=== PATIENT | female | born 1995 | race Caucasian/White ===

== ENCOUNTER 2017-03-10 15:36 | Emergency (ER) | payer OTHER ==
[~2017-03-10] VITALS: Ht 165.1 cm; Wt 127.0 kg
[~2017-03-10 15:36] MED LIST: BIAXIN250 MG PO; BIRTH CONTROL1 EAC1 PO; CONTRAVE1 TER PO; CYCLOBENZAPRINE10 MG PO; GLUCOPHAGE500 MG PO; HYDROCODONE BIT1 T11 PO; IBU800 MG PO; METFORMIN500 MG PO; MOTRIN800 MG PO; Motrin,Rufen800 MG PO; NORCO 10-325 T1 EACH PO; PREDNISONE10 MG PO; ZOFRAN ODT4 MG SL; ZOFRAN4 MG PO
[2017-03-10] MEDS ORDERED: CYCLOBENZAPRINE5 M3 PO (17:27)
[2017-03-10] MEDS ORDERED: Motrin,Rufen800 MG PO (17:27)
== END 2017-03-10 17:36 | disposition home or self-care (01) ==
LOC: ED 15:36
DX: S09.8XXA Other specified injuries of head, initial encounter (principal); Z91.012 Allergy to eggs; Z88.8 Allergy status to other drugs, medicaments and biological substances; F10.10 Alcohol abuse, uncomplicated; W18.09XA Striking against other object with subsequent fall, initial encounter; Y93.89 Activity, other specified; Y92.89 Other specified places as the place of occurrence of the external cause; Y99.8 Other external cause status

== ENCOUNTER 2018-03-11 03:01 | Emergency (ER) | payer OTHER ==
[~2018-03-11] VITALS: Ht 165.1 cm; Wt 136.1 kg
[~2018-03-11 03:01] MED LIST changes: +CYCLOBENZAPRINE5 M3 PO
[2018-03-11] MEDS ORDERED: ATIVAN0.5 MG PO (03:11)
[2018-03-11] MEDS ORDERED: METFORMIN ER500 MG PO (03:12)
[2018-03-11] MEDS ORDERED: LEVOTHYROXINE50 MCG PO (03:12)
[2018-03-11] MEDS ORDERED: VYVANSE30 MG PO (03:13)
[2018-03-11] MEDS ORDERED: EPIPEN 2-P0.3 MG/0.3 IJ (03:14)
[2018-03-11 03:25] LABS: BASO % 0.2 % (0.0-1.0); EOS # 0.1 10*3/uL (0.0-0.4); HEMATOCRIT 42.5 % (37.0-47.0); HEMOGLOBIN 13.8 g/dl (12.0-16.0); LYMPH # 2.3 10*3/uL (1.3-4.4); LYMPH % 22.5 % (27.0-41.0); MEAN CELL VOLUME 83.8 fl (81.0-99.0); MEAN CORPUSCULAR HGB 27.2 pg (27.0-31.0); MEAN CORPUSCULAR HGB CONC 32.5 g/dl (33.0-37.0); MONO # 0.5 10*3/uL (0.1-1.0); MONO % 4.3 % (3.0-9.0); NEUT # 7.5 10*3/uL (2.3-7.9); NEUT % 71.9 % (47.0-73.0); PLATELET COUNT AUTOMATED 384 10*3/uL (130-400); RED BLOOD COUNT 5.07 10*6/uL (4.10-5.10); RED CELL DISTRI WIDTH 14.5 % (0-14.5); WHITE BLOOD COUNT 10.4 10*3/uL (4.8-10.8)
[2018-03-11 03:41] LABS: ALBUMIN 3.5 gm/dl (3.1-4.5); ALKALINE PHOSPHATASE 46 U/L (45-117); BUN 7 mg/dl (7-24); CHLORIDE 110 mmol/L (98-107); CREATININE 0.92 mg/dL (0.55-1.02); LIPASE 152 U/L (73-393); POTASSIUM 4.4 mmol/L (3.5-5.1); SGOT/AST 21 IU/L (3-35); SGPT/ALT 39 U/L (12-78); SODIUM 142 mmol/L (136-145); TOTAL PROTEIN 7.2 gm/dL (6.4-8.2)
[2018-03-11 03:43] LABS: BETA-HCG, QUANT < 1.0 mIU/mL (1-3)
[2018-03-11] MEDS ORDERED: OMEPRAZOLE20 M2 PO (04:53)
== END 2018-03-11 05:00 | disposition home or self-care (01) ==
LOC: ED 03:01
PROVIDERS: Student in an Organized Health Care Education/Training Program
DX: K21.9 Gastro-esophageal reflux disease without esophagitis (principal); R11.2 Nausea with vomiting, unspecified; G89.29 Other chronic pain; Z88.8 Allergy status to other drugs, medicaments and biological substances; Z91.012 Allergy to eggs; Z79.899 Other long term (current) drug therapy; Z79.84 Long term (current) use of oral hypoglycemic drugs; Z87.442 Personal history of urinary calculi

== ENCOUNTER 2018-06-01 23:01 | Emergency (ER) | payer OTHER, BC ==
[~2018-06-01] VITALS: Ht 165.1 cm; Wt 131.5 kg
[~2018-06-01 23:01] MED LIST changes: +ATIVAN0.5 MG PO; +EPIPEN 2-P0.3 MG/0.3 IJ; +LEVOTHYROXINE50 MCG PO; +METFORMIN ER500 MG PO; +OMEPRAZOLE20 M2 PO; +VYVANSE30 MG PO
== END 2018-06-02 00:29 | disposition home or self-care (01) ==
LOC: ED 23:01
DX: S30.0XXA Contusion of lower back and pelvis, initial encounter (principal); G89.29 Other chronic pain; K21.9 Gastro-esophageal reflux disease without esophagitis; Z87.442 Personal history of urinary calculi; Z79.899 Other long term (current) drug therapy; Z79.84 Long term (current) use of oral hypoglycemic drugs; Z88.8 Allergy status to other drugs, medicaments and biological substances; Z91.012 Allergy to eggs; W00.0XXA Fall on same level due to ice and snow, initial encounter; Y93.89 Activity, other specified; Y92.89 Other specified places as the place of occurrence of the external cause; Y99.8 Other external cause status

== ENCOUNTER 2019-02-15 14:35 | Emergency (ER) | payer BC ==
[~2019-02-15] VITALS: Ht 165.1 cm; Wt 131.5 kg
[2019-02-15] MEDS ORDERED: CEPHALEXIN500 M1 PO (15:28)
== END 2019-02-15 15:34 | disposition home or self-care (01) ==
LOC: ED 14:35
DX: S61.211A Laceration without foreign body of left index finger without damage to nail, initial encounter (principal); Z23 Encounter for immunization; Z88.8 Allergy status to other drugs, medicaments and biological substances; Z91.012 Allergy to eggs; Z79.899 Other long term (current) drug therapy; W26.8XXA Contact with other sharp object(s), not elsewhere classified, initial encounter; Y93.G9 Activity, other involving cooking and grilling; Y92.098 Other place in other non-institutional residence as the place of occurrence of the external cause; Y99.8 Other external cause status

== ENCOUNTER → 2020-04-21 | Outpatient (CLI) | payer SELFPAY ==
[~2020-04-21] MED LIST changes: +CEPHALEXIN500 M1 PO
== END | disposition home or self-care (01) ==
LOC: COVID19 10:30
PROVIDERS: ATTEND Physician Assistant Medical
DX: U07.1 COVID-19 (principal)

== ENCOUNTER 2021-01-28 12:02 | Emergency (ER) | payer SELFPAY ==
[~2021-01-28] VITALS: Ht 165.1 cm; Wt 131.5 kg
== END 2021-01-28 16:05 | disposition home or self-care (01) ==
LOC: ED 12:02
DX: S63.501A Unspecified sprain of right wrist, initial encounter (principal); S93.402A Sprain of unspecified ligament of left ankle, initial encounter; Z88.8 Allergy status to other drugs, medicaments and biological substances; Z79.899 Other long term (current) drug therapy; Z91.012 Allergy to eggs; W18.39XA Other fall on same level, initial encounter; Y92.89 Other specified places as the place of occurrence of the external cause; Y93.89 Activity, other specified; Y99.8 Other external cause status

== ENCOUNTER → 2022-05-27 | Outpatient (CLI) | payer BC | END | disposition home or self-care (01) | LOC: RAD 15:29 | PROVIDERS: ATTEND Family Medicine | DX: M54.50 Low back pain, unspecified (principal); M79.604 Pain in right leg ==

== ENCOUNTER 2023-06-05 07:31 | Emergency (ER) | payer BC ==
[2023-06-05 08:12] LABS: BASO % 0.4 % (0.0-1.0); EOS # 0.2 10*3/uL (0.0-0.4); EOS % 2.9 % (1.0-4.0); HEMATOCRIT 42.6 % (37.0-47.0); LYMPH # 2.4 10*3/uL (1.3-4.4); LYMPH % 34.4 % (27.0-41.0); MEAN CELL VOLUME 85.2 fl (81.0-99.0); MEAN CORPUSCULAR HGB 26.8 pg (27.0-31.0); MEAN CORPUSCULAR HGB CONC 31.5 g/dl (33.0-37.0); MEAN PLATELET VOLUME 9.9 fl (9.6-12.3); MONO # 0.4 10*3/uL (0.1-1.0); MONO % 5.5 % (3.0-9.0); NEUT # 3.9 10*3/uL (2.3-7.9); NEUT % 56.7 % (47.0-73.0); PLATELET COUNT AUTOMATED 344 10*3/uL (130-400); RED CELL DISTRI WIDTH 13.8 % (0-14.5); WHITE BLOOD COUNT 6.9 10*3/uL (4.8-10.8)
[2023-06-05 08:34] LABS: ALKALINE PHOSPHATASE 49 U/L (46-116); BUN 10 mg/dl (9-23); CHLORIDE 108 mmol/L (98-107); LIPASE 32 U/L (12-53); POTASSIUM 3.8 mmol/L (3.4-5.1); SGPT/ALT 34 U/L (5-49); TOTAL PROTEIN 6.8 gm/dL (6.0-8.0)
[2023-06-05 08:35] LABS: BETA-HCG, QUANT < 3.0 mIU/mL (3-10)
[2023-06-05 09:56] LABS: BILIRUBIN Negative (Negative); BLOOD 3+ (Negative); CLARITY Cloudy (Clear); COLOR Yellow (Yellow); GLUCOSE Negative (Negative); KETONE Trace (Negative); LEUKO ESTERASE Trace (Negative); NITRITE Negative (Negative); SPECIFIC GRAVITY 1.025 (1.001-1.030)
[2023-06-05 10:06] LABS: BACTERIA 2+; RBC TNTC rbc/hpf (0-2)
[2023-06-05] MEDS ORDERED: ONDANSETRON4 MG SL (11:54)
[2023-06-05] MEDS ORDERED: PERCOCET 5-3251 EACH PO (11:54)
[2023-06-05] MEDS ORDERED: FLOMAX0.4 MG PO (11:54)
[2023-06-05] MEDS ORDERED: Motrin,Rufen800 MG PO (11:54)
== END 2023-06-05 12:05 | disposition home or self-care (01) ==
LOC: ED 07:31
PROVIDERS: Emergency Medicine
DX: N20.1 Calculus of ureter (principal); R10.2 Pelvic and perineal pain; R11.10 Vomiting, unspecified; F32.A Depression, unspecified; E03.9 Hypothyroidism, unspecified; Z91.012 Allergy to eggs; Z91.018 Allergy to other foods; Z88.8 Allergy status to other drugs, medicaments and biological substances

== ENCOUNTER 2023-07-10 21:02 | Emergency (ER) | payer BC ==
[~2023-07-10] VITALS: Ht 167.6 cm; Wt 131.5 kg
[~2023-07-10 21:02] MED LIST changes: +FLOMAX0.4 MG PO; +ONDANSETRON4 MG SL; +PERCOCET 5-3251 EACH PO
[2023-07-10] MEDS ORDERED: SODIUM CHLORIDE 0.9% 1,000 ML IV ONE (21:15)
[2023-07-10] MEDS ORDERED: Ketorolac Tromethamine 30 MG/ML VIAL IV ONE (21:15)
[2023-07-10] MEDS ORDERED: IOHEXOL 300 MG/ML 100 ML VIAL IV ONE (21:20)
[2023-07-10 21:24] LABS: BASO % 0.2 % (0.0-1.0); EOS # 0.1 10*3/uL (0.0-0.4); EOS % 2.1 % (1.0-4.0); HEMATOCRIT 41.5 % (37.0-47.0); LYMPH # 1.2 10*3/uL (1.3-4.4); LYMPH % 20.8 % (27.0-41.0); MEAN CORPUSCULAR HGB 26.6 pg (27.0-31.0); MEAN CORPUSCULAR HGB CONC 31.3 g/dl (33.0-37.0); MEAN PLATELET VOLUME 9.8 fl (9.6-12.3); MONO # 0.2 10*3/uL (0.1-1.0); MONO % 3.9 % (3.0-9.0); NEUT # 4.2 10*3/uL (2.3-7.9); NEUT % 72.8 % (47.0-73.0); PLATELET COUNT AUTOMATED 304 10*3/uL (130-400); RED BLOOD COUNT 4.88 10*6/uL (4.10-5.10); RED CELL DISTRI WIDTH 14.1 % (0-14.5); WHITE BLOOD COUNT 5.7 10*3/uL (4.8-10.8)
[2023-07-10] MEDS ORDERED: Ondansetron Hydrochloride 4 MG/2 ML VIAL IV ONE (21:30)
[2023-07-10 21:47] LABS: ALKALINE PHOSPHATASE 44 U/L (46-116); BUN 7 mg/dl (9-23); CHLORIDE 109 mmol/L (98-107); LIPASE 42 U/L (12-53); POTASSIUM 3.3 mmol/L (3.4-5.1); SGPT/ALT 31 U/L (5-49); TOTAL PROTEIN 7.1 gm/dL (6.0-8.0)
[2023-07-10] MEDS ORDERED: MORPHINE Sulfate 2 MG/ML SYR IV ONE (22:15)
[2023-07-10 22:33] LABS: BILIRUBIN Negative (Negative); BLOOD 2+ (Negative); CLARITY Clear (Clear); COLOR Yellow (Yellow); GLUCOSE Negative (Negative); KETONE Negative (Negative); LEUKO ESTERASE Negative (Negative); NITRITE Negative (Negative); PH 5.5 (4.5-8.0); SPECIFIC GRAVITY >= 1.030 (1.001-1.030)
[2023-07-10 23:04] LABS: BACTERIA TRACE; RBC 21-30 rbc/hpf (0-2); WBC 0-2 wbc/hpf (0-5); YEAST TRACE
[2023-07-10] MEDS ORDERED: Dicyclomine Hydrochloride 10 MG CAP PO ONE (23:50)
[2023-07-11] MEDS ORDERED: FLOMAX0.4 MG PO (00:34)
[2023-07-11] MEDS ORDERED: DICYCLOMINE HYD10 MG PO (00:34)
== END 2023-07-11 00:40 | disposition home or self-care (01) ==
LOC: ED 21:02
PROVIDERS: Internal Medicine
DX: N20.0 Calculus of kidney (principal); R11.2 Nausea with vomiting, unspecified; F32.A Depression, unspecified; Z87.442 Personal history of urinary calculi; E03.9 Hypothyroidism, unspecified; Z91.012 Allergy to eggs; Z91.018 Allergy to other foods; Z88.8 Allergy status to other drugs, medicaments and biological substances

== ENCOUNTER 2024-04-13 20:19 | Emergency (ER) | payer BC ==
[~2024-04-13] VITALS: Ht 165.1 cm; Wt 117.9 kg
[~2024-04-13 20:19] MED LIST changes: +DICYCLOMINE HYD10 MG PO
[2024-04-13] MEDS ORDERED: ZOLOFT25 MG PO (20:32)
[2024-04-13] MEDS ORDERED: Ketorolac Tromethamine 30 MG/ML VIAL IM ONE (20:40)
[2024-04-13] MEDS ORDERED: Ondansetron Hydrochloride 4 MG TAB PO ONE (20:40)
[2024-04-13 20:53] LABS: BASO % 0.3 % (0.0-1.0); EOS # 0.1 10*3/uL (0.0-0.4); MEAN CELL VOLUME 85.8 fl (81.0-99.0); MEAN CORPUSCULAR HGB 27.8 pg (27.0-31.0); MEAN CORPUSCULAR HGB CONC 32.4 g/dl (33.0-37.0); MEAN PLATELET VOLUME 9.8 fl (9.6-12.3); MONO # 0.5 10*3/uL (0.1-1.0); MONO % 4.7 % (3.0-9.0); NEUT # 7.9 10*3/uL (2.3-7.9); NEUT % 69.2 % (47.0-73.0); PLATELET COUNT AUTOMATED 356 10*3/uL (130-400); RED BLOOD COUNT 4.78 10*6/uL (4.10-5.10); RED CELL DISTRI WIDTH 13.8 % (0-14.5); WHITE BLOOD COUNT 11.4 10*3/uL (4.8-10.8)
[2024-04-13 21:13] LABS: BUN 10 mg/dl (9-23); CHLORIDE 105 mmol/L (98-107); POTASSIUM 3.5 mmol/L (3.4-5.1)
[2024-04-13 21:46] LABS: BILIRUBIN Negative (Negative); BLOOD 3+ (Negative); CLARITY Cloudy (Clear); COLOR Yellow (Yellow); GLUCOSE Negative (Negative); KETONE Trace (Negative); LEUKO ESTERASE 1+ (Negative); NITRITE Negative (Negative); PH 5.5 (4.5-8.0); SPECIFIC GRAVITY 1.025 (1.001-1.030); UROBILINOGEN 0.2 E.U./dl (0.0-1.0)
[2024-04-13 21:53] LABS: BACTERIA 1+; FINE GRANULAR CAST 0-2; MUCOUS 1+; RBC 31-40 rbc/hpf (0-2)
[2024-04-13] MEDS ORDERED: HYDROCODONE-AC1 EAC1 PO (22:40)
[2024-04-13] MEDS ORDERED: SEPTDS PO (22:40)
[2024-04-13] MEDS ORDERED: Sulfamethoxazole/Trimethopri 1 TAB TAB PO ONE (22:45)
[2024-04-13] MEDS ORDERED: Acetaminophen/Hydrocodone 5 MG/325 MG TABLET PO ONE (22:45)
== END 2024-04-13 22:48 | disposition home or self-care (01) ==
LOC: ED 20:19
PROVIDERS: Physician Assistant Medical
DX: N20.9 Urinary calculus, unspecified (principal); N39.0 Urinary tract infection, site not specified; R11.2 Nausea with vomiting, unspecified; R19.7 Diarrhea, unspecified; Z87.442 Personal history of urinary calculi; Z88.8 Allergy status to other drugs, medicaments and biological substances; Z91.012 Allergy to eggs; Z91.018 Allergy to other foods; Z79.899 Other long term (current) drug therapy

== ENCOUNTER 2024-06-30 02:55 | Emergency (ER) | payer OTHER ==
[~2024-06-30 02:55] MED LIST changes: +HYDROCODONE-AC1 EAC1 PO; +SEPTDS PO; +ZOLOFT25 MG PO
[2024-07-01 05:06] LABS: HBsAG SCREEN Negative (Negative); HCV Ab Non Reactive (Non Reactive); HEP B CORE Ab, IgM Negative (Negative)
== END 2024-06-30 05:57 | disposition home or self-care (01) ==
LOC: ED 02:55
PROVIDERS: Internal Medicine
DX: S69.91XA Unspecified injury of right wrist, hand and finger(s), initial encounter (principal); F32.A Depression, unspecified; E03.9 Hypothyroidism, unspecified; Z87.442 Personal history of urinary calculi; Z91.012 Allergy to eggs; Z88.8 Allergy status to other drugs, medicaments and biological substances; Z91.018 Allergy to other foods; W46.0XXA Contact with hypodermic needle, initial encounter; Y93.89 Activity, other specified; Y92.89 Other specified places as the place of occurrence of the external cause; Y99.8 Other external cause status

== ENCOUNTER 2024-08-27 13:26 | Emergency (ER) | payer BC ==
[2024-08-27] MEDS ORDERED: Tdap Vaccine 0.5 ML SYR (Adult Vaccine) IM ONE (13:50)
[2024-08-27] MEDS ORDERED: CEPHALEXIN500 M1 PO (14:06)
[2024-08-27] MEDS ORDERED: ACETAMINOPHEN 325 MG TAB PO ONE (14:10)
[2024-08-27] MEDS ORDERED: CEPHALEXIN 500 MG CAP PO ONE (14:10)
== END 2024-08-27 14:21 | disposition home or self-care (01) ==
LOC: ED 13:26
DX: S01.81XA Laceration without foreign body of other part of head, initial encounter (principal); K21.9 Gastro-esophageal reflux disease without esophagitis; Z87.442 Personal history of urinary calculi; Z88.8 Allergy status to other drugs, medicaments and biological substances; Z91.012 Allergy to eggs; W18.09XA Striking against other object with subsequent fall, initial encounter; Y93.89 Activity, other specified; Y92.89 Other specified places as the place of occurrence of the external cause; Y99.8 Other external cause status

== ENCOUNTER → 2025-02-18 | Outpatient (CLI) | payer BC ==
[2025-02-18 11:33] LABS: BASO # 0.0 10*3/uL (0.0-0.1); BASO % 0.6 % (0.0-1.0); EOS # 0.2 10*3/uL (0.0-0.4); EOS % 3.3 % (1.0-4.0); MEAN CELL VOLUME 83.9 fl (81.0-99.0); MEAN CORPUSCULAR HGB 27.4 pg (27.0-31.0); MEAN PLATELET VOLUME 9.3 fl (9.6-12.3); MONO # 0.4 10*3/uL (0.1-1.0); MONO % 6.5 % (3.0-9.0); NEUT # 3.4 10*3/uL (2.3-7.9); NEUT % 50.2 % (47.0-73.0); NUCLEATED RED BLOOD CELL 0.0 % (0.0-0.0); NUCLEATED RED BLOOD CELL 0.0 10*3/uL (0.0-0.0); PLATELET COUNT AUTOMATED 427 10*3/uL (130-400); RED CELL DISTRI WIDTH 14.3 % (0-14.5)
[2025-02-18 12:05] LABS: BUN 10 mg/dl (9-23); LDL CHOLESTEROL 99 mg/dL (9-159); SGPT/ALT 24 U/L (5-49)
[2025-02-18 12:27] LABS: FREE T4 1.00 ng/dl (0.89-1.76)
== END | disposition home or self-care (01) ==
LOC: LAB 11:09
PROVIDERS: ATTEND Nurse Practitioner Family
DX: E28.2 Polycystic ovarian syndrome (principal); Z13.220 Encounter for screening for lipoid disorders; Z13.1 Encounter for screening for diabetes mellitus; Z13.29 Encounter for screening for other suspected endocrine disorder; F90.9 Attention-deficit hyperactivity disorder, unspecified type; E66.01 Morbid (severe) obesity due to excess calories; Z76.89 Persons encountering health services in other specified circumstances

== ENCOUNTER 2025-05-04 01:17 | Emergency (ER) | payer BC ==
[~2025-05-04] VITALS: Ht 165.1 cm; Wt 117.9 kg
[2025-05-04] MEDS ORDERED: SODIUM CHLORIDE 0.9% 1,000 ML IV ONE (01:45)
[2025-05-04] MEDS ORDERED: Ondansetron Hydrochloride 4 MG/2 ML VIAL IV ONE ×2 (01:45→04:40)
[2025-05-04 01:55] LABS: BASO # 0.0 10*3/uL (0.0-0.1); BASO % 0.4 % (0.0-1.0); EOS # 0.2 10*3/uL (0.0-0.4); EOS % 2.5 % (1.0-4.0); MEAN CELL VOLUME 85.5 fl (81.0-99.0); MEAN CORPUSCULAR HGB 28.2 pg (27.0-31.0); MEAN PLATELET VOLUME 9.6 fl (9.6-12.3); MONO # 0.5 10*3/uL (0.1-1.0); MONO % 6.3 % (3.0-9.0); NEUT # 4.8 10*3/uL (2.3-7.9); NEUT % 60.3 % (47.0-73.0); NUCLEATED RED BLOOD CELL 0.0 % (0.0-0.0); NUCLEATED RED BLOOD CELL 0.0 10*3/uL (0.0-0.0); PLATELET COUNT AUTOMATED 362 10*3/uL (130-400); RED CELL DISTRI WIDTH 13.8 % (0-14.5)
[2025-05-04 02:19] LABS: BUN 8 mg/dl (9-23)
[2025-05-04] MEDS ORDERED: Ondansetron4 MG PO (04:55)
== END 2025-05-04 06:06 | disposition home or self-care (01) ==
LOC: ED 01:17
PROVIDERS: Internal Medicine
DX: R10.84 Generalized abdominal pain (principal); T50.905A Adverse effect of unspecified drugs, medicaments and biological substances, initial encounter; K21.9 Gastro-esophageal reflux disease without esophagitis; E03.9 Hypothyroidism, unspecified; F32.A Depression, unspecified; Z91.0120 Allergy to eggs, unspecified; Z91.018 Allergy to other foods; Z88.8 Allergy status to other drugs, medicaments and biological substances; Z87.442 Personal history of urinary calculi; Z20.822 Contact with and (suspected) exposure to COVID-19; Y92.89 Other specified places as the place of occurrence of the external cause